=== PATIENT | female | born 1995 | race Caucasian/White ===

== ENCOUNTER → 2018-12-11 14:33 | Outpatient (CLI) | payer OTHER, SELFPAY ==
[2018-12-11 15:42] LABS: Absolute Lymphocyte Count 1.56 X10^3/uL (0.83-4.51); Absolute Neutrophil Count 6.9 X10^3/uL (2.0-7.7); Basophil# 0.03 X10^3/uL; Basophil% 0.3 % (0-1); Color, Urine Yellow (Yellow); Eosinophil# 0.06 X10^3/uL; Eosinophils% 0.7 % (0-5); Glucose, Dipstick Normal (Normal); Hematocrit 35.4 % (37-47); Hemoglobin 12.4 g/dL (12.0-15.0); Ketone-Dipstick Negative (Negative); Leukocyte Esterase-Dipstick 100 /ul (Negative); Lymphocyte # 1.56 X10^3/ul (4.0); Mean Corpuscular Hgb 30.6 pg (27.0-32.0); Mean Corpuscular Volume 87.4 fL (81-99); Mean Platelet Vol. 9.5 fl (6.2-12.0); Monocyte# 0.63 X10^3/uL; Monocyte% 6.9 % (0-10); NRBC Flagged by Analyzer 0 % (0-5); Neutrophil # 6.87 X10^3/uL (2.7-7.7); Neutrophil % 74.8 % (47-70); Nitrite-Dipstick Negative (Negative); Occult Blood-Urine Negative /ul (Negative); Platelet Count 255 K/mm3 (150-450); Protein-Dipstick Negative (Negative); RBC Distribution Width CV 13.2 % (11.6-14.6); Red Blood Count 4.05 M/mm3 (4.2-5.4); Urine Bilirubin Dipstick Negative (Negative); Urine Clarity Sl. Cloudy (Clear); Urine Urobilinogen Normal (Normal); White Blood Count 9.2 K/mm3 (4.4-11.0)
[2018-12-11 17:19] LABS: Chlamydia Trachomatis by PCR Negative (Negative); Neisserai gonorrhoeae by PCR Negative (Negative); Probe Check PASS; Sample Adequacy Control PASS; Specimen Processing Control PASS
[2018-12-12 01:39] LABS: Prenatal RPR NONREACTIVE (NONREACTIVE)
[2018-12-12 10:00] LABS: HIV - WCH Non-Reactive (Nonreactive); Hepatitis B Surface Antigen Non-Reactive (Nonreactive); Hepatitis C Antibody Non-Reactive (Nonreactive)
== END ==
PROVIDERS: Visit Provider Obstetrics & Gynecology
DX: Z34.82 Encounter for supervision of other normal pregnancy, second trimester (principal); Z12.4 Encounter for screening for malignant neoplasm of cervix; Z11.3 Encounter for screening for infections with a predominantly sexual mode of transmission
CPT/HCPCS: 36415; 81002; 84443; 85025; 86703; 86762; 86803; 87340; 87491; 87591; 88175; G0145

== ENCOUNTER → 2019-02-09 13:53 | Outpatient (CLI) | payer OTHER, SELFPAY ==
[2019-02-09 15:46] LABS: Hemoglobin 12.2 g/dL (12.0-15.0); Mean Corp Hgb Conc 35.9 g/dL (32-36); Mean Corpuscular Hgb 32.3 pg (27.0-32.0); Mean Corpuscular Volume 89.9 fL (81-99); Mean Platelet Vol. 9.7 fl (6.2-12.0); Platelet Count 246 K/mm3 (150-450); RBC Distribution Width CV 12.6 % (11.6-14.6); RBC Distribution Width SD 41.2 fl (35.1-43.9); Red Blood Count 3.78 M/mm3 (4.2-5.4); White Blood Count 10.9 K/mm3 (4.4-11.0)
== END ==
PROVIDERS: Visit Provider Obstetrics & Gynecology
DX: Z34.82 Encounter for supervision of other normal pregnancy, second trimester (principal)
CPT/HCPCS: 36415; 83036; 85027

== ENCOUNTER → 2019-03-19 13:09 | Outpatient (CLI) | payer OTHER, SELFPAY ==
[2019-03-19 14:07] LABS: Hemoglobin 12.8 g/dL (12.0-15.0); Mean Corp Hgb Conc 35.6 g/dL (32-36); Mean Corpuscular Hgb 31.6 pg (27.0-32.0); Mean Corpuscular Volume 88.9 fL (81-99); Mean Platelet Vol. 9.7 fl (6.2-12.0); Platelet Count 232 K/mm3 (150-450); RBC Distribution Width CV 12.7 % (11.6-14.6); RBC Distribution Width SD 41.1 fl (35.1-43.9); Red Blood Count 4.05 M/mm3 (4.2-5.4); White Blood Count 10.2 K/mm3 (4.4-11.0)
[2019-03-19 14:10] LABS: Glucose Challenge Gest 1H 50g 131 mg/dL (70-140)
== END ==
PROVIDERS: Visit Provider Obstetrics & Gynecology
DX: Z34.83 Encounter for supervision of other normal pregnancy, third trimester (principal)
CPT/HCPCS: 36415; 82950; 85027

== ENCOUNTER → 2019-04-22 | Outpatient (CLI) | payer OTHER, SELFPAY | END | disposition home or self-care (01) | LOC: LABSPEC 12:57 | PROVIDERS: Visit Provider Advanced Practice Midwife | DX: Z36.85 Encounter for antenatal screening for Streptococcus B (principal) | CPT/HCPCS: 87081 ==

== ENCOUNTER 2019-05-19 06:51 | Inpatient (IN) | payer SELFPAY, OTHER ==
[2019-05-19] VITALS (24 sets, daily range): BP systolic 109–140; BP diastolic 65–93; PULSE 68–108; RESP 18; TEMP 36.9–37.3; O2SAT 96–99; BMI 28.3
[2019-05-19] MEDS: Lactated Ringers 1,000 ML 50 ML IV (07:35)
[2019-05-19 08:00] LABS: Absolute Neutrophil Count 5.3 X10^3/uL (2.0-7.7); Basophil# 0.02 X10^3/uL; Basophil% 0.3 % (0-1); Eosinophil# 0.04 X10^3/uL; Eosinophils% 0.5 % (0-5); Hematocrit 37.5 % (37-47); Hemoglobin 13.4 g/dL (12.0-15.0); Mean Corp Hgb Conc 35.7 g/dL (32-36); Mean Corpuscular Hgb 31.8 pg (27.0-32.0); Mean Corpuscular Volume 88.9 fL (81-99); Monocyte# 0.54 X10^3/uL; Monocyte% 7.3 % (0-10); NRBC Flagged by Analyzer 0 % (0-5); Neutrophil # 5.34 X10^3/uL (2.7-7.7); Neutrophil % 72.5 % (47-70); Platelet Count 205 K/mm3 (150-450); RBC Distribution Width CV 12.7 % (11.6-14.6); RBC Distribution Width SD 40.5 fl (35.1-43.9); Red Blood Count 4.22 M/mm3 (4.2-5.4); White Blood Count 7.4 K/mm3 (4.4-11.0)
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
--- NOTE | 2019-05-19 08:47 | PCM.HP.OB ---
- Problem List (1) 41 weeks gestation of Status: Acute (2) Encounter for induction of labor Status: Acute History Date of Admission: 05/19/19 Final RUCHI: 05/11/19 Final RUCHI Source: US <20 weeks Gestational age: 41 Weeks and 1 Days History of this : This is a 23 year-old, G [1], P [0], at 41 weeks gestational age. Allergies succinylcholine Allergy (Verified 05/19/19 07:26) Other Home Medications: Home Medications Calcium Carbonate [Calcium] BID 05/19/19 Vits [Prenatabs FA] 1 tab PO DAILY 05/19/19 Smoking Status: Never smoker Alcohol: None Number of Fetus(es): 1 NST - FHR Rate Baby A Baseline: 140 Variability:: Moderate Accelerations:: 15 x 15 Decelerations:: None NST Reactive:: Yes FHR Category:: Category I Uterine Activity:: quiet History Past Pregnancies: , First Labs: Mom's Problem List Problem Status Onset Code 41 weeks gestation of Acute Z3A.41 Encounter for induction of labor Acute Z34.90 Mom's Labs & Results 05/19/19 05/19/19 07:35 07:35 WBC 7.4 RBC 4.22 Hgb 13.4 Hct 37.5 MCV 88.9 MCH 31.8 MCHC 35.7 RDW Std Deviation 40.5 RDW Coeff of Justina 12.7 Plt Count 205 MPV 11.0 Immature Gran % (Auto) 0.400 Neut % (Auto) 72.5 H Lymph % (Auto) 19.0 Hayes % (Auto) 7.3 Eos % (Auto) 0.5 Baso % (Auto) 0.3 Absolute Neuts (auto) 5.3 Absolute Lymphs (auto) 1.40 Nucleated RBC % 0 Blood Type Pending Antibody Screen Pending Course Did the patient receive Yes care? Labs Blood Type: A RH: POSITIVE RPR/VDRL/Syphilis Nonreactive Rubella status Immune HbSAg Negative Date Done: 12/11/18 Chlamydia Negative Gonorrhea Negative HIV/AIDS Non-Reactive Group B Strep: Negative Current Obstetrical History Gestational Diabetes No Incompetent Cervix No Infertility No IUGR No Macrosomia No Hypertension/Pre-eclampsia No Placenta Previa/Abruption No PTL/PROM No Uterine anomaly No Oligohydramnios No Polyhydramnios No Multiple gestation No Past Medical History Asthma No Diabetes No Hypertension No Heart disease No Mitral valve prolapse No Neurologic/Seizure disorder/ No Migraines Kidney disease No Liver disease No Varicosities No Clotting disorders/Hx of DVT No Thyroid Dysfunction No Other medical diseases No Psychiatric disorders No Major trauma No Abnormal PAP smear No Sleep apnea No Mammogram in the last 2 years No Social History Marital Status: Alleged father Jacob Donis Hx Smoking No Smoking Status Never smoker Expected Delivery Method: Spontaneous Vaginal Number of Visits: 9 Review of Systems Constitutional: Denies: Chills, Fever, Weight Change HEENT: Denies: Head Aches, Sinus Congestion, Sinus Drainage Cardiovascular: Denies: Chest Pain, Palpitations Respiratory: Denies: Cough, Shortness of breath at rest, Sputum production Gastrointestinal: Denies: Abdominal Pain, Nausea, Vomiting Genitourinary: Denies: Dysuria Musculoskeletal: Denies: Joint Pain, Joint Tenderness Skin: Denies: Rash, Wounds Neurological: Denies: Numbness, Tingling, Focal weakness Psychiatric: Denies: Anxiety, Depression, Homicidal Ideations, Suicidal Ideations Hematologic/ Lymphatic: Denies: Easy Bruising, Easy Bleeding Physical Exam General: Alert, Oriented x3, No apparent distress HEENT: Atraumatic, Normocephalic. Negative for: Thyromegaly, Lymphadenopathy Cardiovascular: Regular rate, Regular Rhythm Lungs: Clear to auscultation Abdomen: Bowel Sounds Present, Gravid Neurological: Deep Tendon Reflexes 2+/4 and Symmetrical, Neuro grossly intact LICENSED PHYSICAL THERAPIST ASSISTANT: Normal external genitalia. Negative for: Vulvar lesions Estimated gestational size: Appropriate for gestational size Presentation: Cephalic Cervix Dilation (cm): 3 Station: -2 Effacement (%): 90 Assessment/Plan All Active Problems 41 weeks gestation of (Acute) Encounter for induction of labor (Acute) A: This is a 23 year-old, G [1], P [0], at 41 weeks gestational age. Here for IOL SVE 3.5/90/-2 UC quiet NST FHR baseline 140, + accels, -decels, moderate variability, Category I P: AROM, clear fluid Recheck SVE at 1000 If labor does not begin on its own, will augment with Pitocin per patient wishes for more natural induction
[2019-05-19] MEDS: Oxytocin 30 units/NS 500 ml 30 UNITS/500 ML IV.SOLN 334 UNITS IV (13:09)
[2019-05-19] MEDS: Methylergonovine 0.2 MG/ML Ampul IM (13:12)
[2019-05-19] MEDS: miSOPROStol 200 MCG Tablet 800 MCG RECTAL (13:26)
--- NOTE | 2019-05-19 14:35 | OP.PCM_ITS ---
Problem List (1) 41 weeks gestation of Status: Acute (2) Encounter for induction of labor Status: Acute Vaginal Delivery Maternal Presentation: Medically Indicated Induction Patient was FD/+2 station when CNM called with decel after second push with FHR down to 60 at 1222. At 1225 CNM at bedside and Dr. Crane called to bedside for sustained low HR at 60 with patient in hands and knees, oxygen on and IV fluid bolus running. At 1227 Dr. Crane in the room. At 1229 FHR baseline back to 100 with both providers in room. FHR moderate variability with baseline 120 at 1235. Okay to begin pushing again given by Dr. Crane at 1241 with patient in hands and knees with O2 and bolus still running. Delivery of viable female fetus in OA to JOSE Immediately followed by placenta in Bell mechanism. The infant was held by CNM and attended to by nursery personnel with bulb suction and stimulation. The cord was doubly clamped and cut by CNM after 30 seconds. was taken by nursery personnel to warmer for further evalua tion. Pitocin started per protocol with fundal massage. IM Methergine given due to blood loss. Fundus firmed well. Bleeding still visualized from 2nd degree periurethral laceration with clitoral extension. 800mcg Cytotec given rectally. Packing applied and Dr. Crane called back for repair. 2nd degree perineal laceration with vaginal extension repaired by CNM with a 3.0 double rapide after injection of 1% lidocaine locally. Packing replaced several times. Dr. Jana Cruz entered room to place a hamilton catheter and repaired periurethral laceration with a 2.0 vicryl after 1% lidocaine injected to the area locally. On inspection placenta was intact with a 3 vessel cord. EBL 750. apgars 8/9. Method of Induction: Amniotomy Medical Reason for Induction: Post term Amniotic Membrane Rupture Type: Artificial Amniotic Fluid Description: Clear Final RUCHI: 05/11/19 Final RUCHI Source: US <20 weeks Gestational age: 41 Weeks and 1 Days Date of Procedure: 05/19/19 Pre-Operative Diagnosis: IOL Post-Operative Diagnosis: S/P Surgery/ Procedure Performed: Spontaneous Vaginal Delivery Type of Anesthesia: Local with 1% lidocaine Presentation: Vertex, JOSE Placental Delivery Description: Spontaneous Placenta Disposition: [facility] Cord Vessel Description: 3 Vessels Cord Entanglement: None Estimated Blood Loss: 750 Infant A gender: Male (1 minute): 8 (5 minute): 9 Episiotomy Description: None Laceration: Periurethral Extnsion/lac - 2nd degree perineal with vaginal floor extension, 2nd degree urethral with clitoral extension, Perineal Extension/lac, 2nd degree Medications given after delivery: IV Pitocin, IM Methergin, - - rectal Cytotec
--- NOTE | 2019-05-19 15:00 | PCM.OPRPT ---
Problem List (1) Obstetrical laceration Status: Acute Report of Operation Date of Procedure: 05/19/19 Pre-Operative Diagnosis: s/p , periurethral/periclitoral laceration Post-Operative Diagnosis: s/p , periurethral/periclitoral laceration Surgery/Procedure Performed:: Periurethral/periclitoral laceration repair Description of Surgical Findings:: periclitoral laceration extending just superior to the urethra supervisor silvering department: Teresa Shirley Type of Anesthesia:: Local Specimen's removed: none Estimated Blood Loss (mL): 20 Description of Procedure: Arrived to room, following . Vulvar examination demonstrated a midline laceration extended from just inferior to the clitorus to just superior to the urethra with bleeding. A perineal repair was present with no other significant lacerations. The anatomy was reapproximated using Allis clamps with improvement of bleeding. The urethra meatus appeared intact intact, a hamilton catheter was placed draining clear urine. A series of horizontal mattress sutures were placed using 3-0 Vicryl Rapide along the laceration line and Allis clamps were removed. There was excellent hemostasis. - Admit VTE Documentation VTE Present on Admission: No VTE Mechan Device Prophylaxis: SCD's VTE Pharm Prophylaxis ordered?: No
--- NOTE | 2019-05-19 16:25 | NURSING ---
Infant wrapped and given to father to hold.
--- NOTE | 2019-05-19 17:18 | NURSING ---
1630 spoke with vashti schneider made aware of temp of 100.8 during recovery and now 100.3; orders received for pt to take tylenol-given
--- NOTE | 2019-05-19 17:19 | NURSING ---
1650 pt oob up to chair pt gait steady
--- NOTE | 2019-05-19 18:03 | NURSING ---
Placed by Dr. Crane at bedside
[2019-05-19] MEDS: Ibuprofen 600 MG Tablet PO (21:56)
[2019-05-20] VITALS (13 sets, daily range): BP systolic 112–130; BP diastolic 71–81; PULSE 70–96; RESP 14–18; TEMP 36.7–37.6; O2SAT 96–100
[2019-05-20] MEDS: 0.9% Saline Lock 10 ML Syringe IV (02:08)
[2019-05-20 05:30] LABS: Hematocrit 36.8 % (37-47); Mean Corp Hgb Conc 35.3 g/dL (32-36); Mean Corpuscular Hgb 31.6 pg (27.0-32.0); Mean Corpuscular Volume 89.3 fL (81-99); Mean Platelet Vol. 10.9 fl (6.2-12.0); Platelet Count 171 K/mm3 (150-450); RBC Distribution Width CV 12.7 % (11.6-14.6); RBC Distribution Width SD 41.2 fl (35.1-43.9); Red Blood Count 4.12 M/mm3 (4.2-5.4); White Blood Count 12.7 K/mm3 (4.4-11.0)
--- NOTE | 2019-05-20 05:33 | NURSING ---
MD concerns for urinary retention due to perineal swelling, 2nd degree perineal and periurethral tears
--- NOTE | 2019-05-20 07:20 | PCM.PN.BLA ---
Progress Note Patient seen, sleeping comfortably. Will return later today.
--- NOTE | 2019-05-20 07:36 | PCM.PN.OB ---
Patient Problems: Active and Suspected Problems 41 weeks gestation of (Acute) Obstetrical laceration (Acute) Subjective: No issues overnight. Denies pain or heavy lochia. is nursing well and Anupama was able to sleep a bit through the night. OOB without difficulties. Objective: AVSS - Physical Exam Vitals/I&O's: Vital Signs Temp Pulse Resp BP 98.3 F 73 14 112/72 05/20/19 03:19 05/20/19 03:19 05/20/19 03:19 05/20/19 03:19 Oxygen Delivery Method Room Air Weight: 76.204 kg Body Mass Index (BMI) 28.3 Intake and Output for Last 24 Hours 05/18/19 05/19/19 05/20/19 23:59 23:59 23:59 Intake Total 987.50 / 987.50 1000 / 1000 Output Total 1999 700 / 700 Balance -1012.50 / -1012.50 300 / 300 General: Alert, Oriented x3, Cooperative, No apparent distress HEENT: Atraumatic, Normocephalic Lungs: Normal air movement Cardiovascular: Regular rate, Regular Rhythm, Normal S1, Normal S2 Abdomen: Soft, Non Tender, Non-Distended, - - fundus firm and nontender, lochia moderate, mild vulvar edema Extremities: No Calf Tenderness, - - trace LE edema Neurological: Neuro grossly intact Psych/Mental Status: Normal Affect, Appropriate, Alert and oriented to time, place, person, mood and affect Laboratory Results 05/19/19 07:35: WBC 7.4, RBC 4.22, Hgb 13.4, Hct 37.5, MCV 88.9, MCH 31.8, MCHC 35.7, RDW Std Deviation 40.5, RDW Coeff of Justina 12.7, Plt Count 205, MPV 11.0, Immature Gran % (Auto) 0.400, Neut % (Auto) 72.5 H, Lymph % (Auto) 19.0, Mckean % (Auto) 7.3, Eos % (Auto) 0.5, Baso % (Auto) 0.3, Absolute Neuts (auto) 5.3, Absolute Lymphs (auto) 1.40, Nucleated RBC % 0 05/19/19 07:35: Blood Type A POSITIVE, Antibody Screen NEGATIVE 05/20/19 05:15: WBC 12.7 H, RBC 4.12 L, Hgb 13.0, Hct 36.8 L, MCV 89.3, MCH 31.6, MCHC 35.3, RDW Std Deviation 41.2, RDW Coeff of Justina 12.7, Plt Count 171, MPV 10.9 Current Medications Acetaminophen (Tylenol) 1,000 mg PO Q8H PRN PRN PRN Reason: Pain Score 1-3/10 Bisacodyl (Dulcolax) 10 mg RECTAL UD PRN PRN Reason: If no BM Dibucaine (Dibucaine) 1 applic TOPICAL TID PRN PRN; Protocol PRN Reason: Discomfort Hydrocortisone (Hytone) 1 applic TOPICAL TID PRN PRN; Protocol PRN Reason: Discomfort Ibuprofen (Motrin) 600 mg PO Q6H PRN PRN PRN Reason: Pain Score 1-3/10 Last Admin: 05/19/19 21:56 Dose: 600 mg Documented by: Methylergonovine Maleate (Methergine) 0.2 mg IM X1 PRN PRN Reason: Excess bleeding/uterine atony Last Admin: 05/19/19 13:12 Dose: 0.2 mg Documented by: Ondansetron HCl (Zofran) 4 mg IV Q4H PRN PRN PRN Reason: Nausea Oxycodone HCl (Oxyir) 5 - 10 mg PO Q4H PRN PRN PRN Reason: Pain Score 4-10/10 Senna/Docusate Sodium (Senokot-S, Cintia-Colace) 1 - 2 tablet PO DAILY PRN PRN PRN Reason: Constipation Simethicone (Mylicon) 80 mg PO PCHS PRN PRN Reason: Indigestion/Stomach pain Sodium Chloride () 5 - 15 ml IV UD PRN PRN Reason: SALINE FLUSH Last Admin: 05/20/19 02:08 Dose: 10 ml Documented by: Medical Necessity - Tobacco Use Smoking Status: Never smoker Assessment/Plan All Active Problems 41 weeks gestation of (Acute) Obstetrical laceration (Acute) Encounter for induction of labor (Resolved) 23yo PPD#1 s/p doing well. -Will d/c hamilton catheter - -A positive -Routine care
--- NOTE | 2019-05-20 09:42 | NURSING ---
Dr. Crane called this RN this am to state that alfonso may be d/c'd at this morning.
[2019-05-20] MEDS: Ibuprofen 600 MG Tablet PO (11:44)
[2019-05-20] MEDS: Senna/Docusate Sodium 1 Tablet PO (11:45)
[2019-05-20] MEDS: Acetaminophen 500 MG Tablet 1000 MG PO ×2 (15:42→22:58)
[2019-05-21 04:14] VITALS: BP 108/56; PULSE 85; RESP 16; TEMP 36.4
[2019-05-21 04:15] VITALS: BP 108/56; PULSE 85
[2019-05-21] MEDS: Ibuprofen 600 MG Tablet PO ×2 (04:22→12:40)
[2019-05-21 08:52] VITALS: BP 115/65; PULSE 79
[2019-05-21 08:55] VITALS: BP 115/65; PULSE 79; RESP 15; TEMP 36.7
--- NOTE | 2019-05-21 09:02 | DCINST_ITS ---
Discharge Diet: No Restrictions Discharge Activity: Return to Normal Activity, May not drive while taking narcotic pain medications., May Shower May resume sexual activity in: 4-6 weeks Additional Activity Instructions:: Nothing in the vagina for 4-6 weeks. You may return to work/school in 6 weeks. Call your doctor if your incision/area has: Continuous Slow Oozing, Sudden Increased Bleeding, Increased Pain/ Swelling, Increased Redness, Foul Smelling Discharge Additional Instructions: If you experience any of the following, contact your healthcare provider. * Bleeding that soaks a pad every hour for 2 hours * Fever 100.4 or higher * Unrelieved incision or abdominal pain * Swelling, redness, discharge or bleeding from your incision or episiotomy site * Your incision begins to separate * Problems urinating (including inability to urinate or burning while urinating). * Visual changes * Severe headache * Flu-like symptoms * Pain or redness in one of both of your breasts * Pain, warmth, tenderness or swelling in your legs, especially the calf area * Frequent nausea and vomiting * Symptoms of depression or anxiety If you experience any of the following, call 911 or go to the nearest Emergency Room. * Chest pain * Problems breathing * Seizure activity * Partial or complete paralysis of a body part, slurred speech, weakness or drooping of the face, or a sudden inability to walk or hold your balance Allergies/Adverse Reactions: Allergies succinylcholine Allergy (Verified 05/19/19 07:26) Other Medications to take at Discharge Calcium Carbonate [Calcium] BID 05/19/19 Vits [Prenatabs FA] 1 tab PO DAILY 05/19/19 Please Follow Up With: Teresa Shirley CNM When: Call to make an appointment with your doctor in 6 weeks. If signs of Post Depression to call in 2 weeks. Primary Care Physician: Care Physician,No Primary [Primary Care Provider] - Test Results: Test results from this visit will be discussed in further detail at your follow- up appointment, if applicable.
--- NOTE | 2019-05-21 09:04 | PCM.PN.BLA ---
Progress Note S: Feeling well with little pain. Vaginal pain 2/10 controlled with Tylenol and Motrin. is going well and ready to go home. O: AVSS Fundus u/1, firm, midline Lochia rubra moderate, denies clots A: Post vaginal delivery day #2 female Normal course P: To discharge home today Call if any problems with If signs of Post depression to call immediately and schedule 2 week appt Normal appt in 6 weeks STROKE Vital Signs/Narrative: Vital Signs Temp Pulse Resp BP 05/21/19 08:55 98.0 F 79 15 115/65
[2019-05-21] MEDS: Acetaminophen 500 MG Tablet 1000 MG PO (09:14)
[2019-05-21 12:24] VITALS: BP 120/78; PULSE 83
[2019-05-21 12:33] VITALS: BP 120/78; PULSE 83; RESP 15; TEMP 36.6
== END 2019-05-21 14:05 | disposition home or self-care (01) | DRG 807 ==
PROVIDERS: Admitting Provider Obstetrics & Gynecology; Referring Provider Obstetrics & Gynecology; Visit Provider Obstetrics & Gynecology
DX: O76 Abnormality in fetal heart rate and rhythm complicating labor and delivery (principal); Z37.0 Single live birth; O48.0 Post-term pregnancy; O70.1 Second degree perineal laceration during delivery; O71.82 Other specified trauma to perineum and vulva; Z3A.41 41 weeks gestation of pregnancy
CPT/HCPCS: 59025; 59050; 85025; 85027; 86850; 86900; 86901; 99218; J7120; A4216; G0378

== ENCOUNTER → 2021-03-01 11:52 | Outpatient (CLI) | payer OTHER, SELFPAY ==
[2021-03-01 12:21] LABS: Color, Urine Yellow (Yellow); Glucose, Dipstick Normal (Normal); Ketone-Dipstick Negative (Negative); Leukocyte Esterase-Dipstick 25 /ul (Negative); Nitrite-Dipstick Negative (Negative); Occult Blood-Urine Negative /ul (Negative); Protein-Dipstick Negative (Negative); Specific Gravity, Urine 1.015 (1.002-1.030); Urine Bilirubin Dipstick Negative (Negative); Urine Clarity Cloudy (Clear); Urine Urobilinogen Normal (Normal)
[2021-03-01 12:27] LABS: Absolute Lymphocyte Count 1.36 X10^3/uL (0.83-4.51); Absolute Neutrophil Count 5.7 X10^3/uL (2.0-7.7); Basophil# 0.03 X10^3/uL; Basophil% 0.4 % (0-1); Eosinophil# 0.06 X10^3/uL; Eosinophils% 0.8 % (0-5); Hematocrit 34.4 % (37-47); Hemoglobin 12.6 g/dL (12.0-15.0); Lymphocyte # 1.36 X10^3/ul (0.83-4.51); Lymphocyte % 18.2 % (19-41); Mean Corp Hgb Conc 36.6 g/dL (32-36); Mean Corpuscular Hgb 31.5 pg (27.0-32.0); Mean Platelet Vol. 9.2 fl (6.2-12.0); Monocyte# 0.35 X10^3/uL; Monocyte% 4.7 % (0-10); NRBC Flagged by Analyzer 0 % (0-5); Neutrophil # 5.65 X10^3/uL (2.7-7.7); Neutrophil % 75.8 % (47-70); Platelet Count 281 K/mm3 (150-450); RBC Distribution Width CV 12.8 % (11.6-14.6); RBC Distribution Width SD 39.8 fl (35.1-43.9); White Blood Count 7.5 K/mm3 (4.4-11.0)
[2021-03-01 12:47] LABS: Thyroid Stim Hormone (TSH) 0.93 uIU/mL (0.358-3.74)
[2021-03-01 13:16] LABS: HIV - WCH Non-Reactive (Nonreactive); Hepatitis B Surface Antigen Non-Reactive (Nonreactive); Hepatitis C Antibody Non-Reactive (Nonreactive); Rubella IgG Reactive (Nonreactive); Syphilis Antibodies Non-reactive
[2021-03-02 22:07] LABS: Chlamydia By Nucleic Acid AMP Negative (Negative)
[2021-03-03 08:08] LABS: Gonococcus By Nucleic Acid AMP Negative (Negative)
[2021-03-06 14:20] LABS: HPV Reflexed? NOT INDICATED
== END ==
PROVIDERS: Visit Provider Obstetrics & Gynecology
DX: Z34.82 Encounter for supervision of other normal pregnancy, second trimester (principal); Z12.4 Encounter for screening for malignant neoplasm of cervix; Z11.3 Encounter for screening for infections with a predominantly sexual mode of transmission
CPT/HCPCS: 36415; 81002; 84443; 85025; 86703; 86762; 86780; 86803; 87086; 87088; 87340; 87491; 87591; 88175; G0145

== ENCOUNTER 2021-05-22 08:38 | Outpatient (CLI) | payer OTHER, SELFPAY ==
[2021-05-22 10:04] LABS: Glucose Challenge Gest 1H 50g 92 mg/dL (70-140)
[2021-05-22 10:10] LABS: Hematocrit 35.5 % (37-47); Hemoglobin 12.8 g/dL (12.0-15.0); Mean Corp Hgb Conc 36.1 g/dL (32-36); Mean Corpuscular Hgb 32.2 pg (27.0-32.0); Mean Corpuscular Volume 89.2 fL (81-99); Mean Platelet Vol. 9.4 fl (6.2-12.0); Platelet Count 247 K/mm3 (150-450); RBC Distribution Width CV 13.2 % (11.6-14.6); RBC Distribution Width SD 43.2 fl (35.1-43.9); Red Blood Count 3.98 M/mm3 (4.2-5.4); White Blood Count 7.4 K/mm3 (4.4-11.0)
== END 2021-05-22 23:59 | disposition home or self-care (01) ==
PROVIDERS: Visit Provider Obstetrics & Gynecology
DX: Z34.83 Encounter for supervision of other normal pregnancy, third trimester (principal)
CPT/HCPCS: 36415; 82950; 85027

== ENCOUNTER → 2021-07-20 | Outpatient (CLI) | payer OTHER, SELFPAY | END | disposition home or self-care (01) | LOC: LABSPEC 10:45 | PROVIDERS: Visit Provider Obstetrics & Gynecology | DX: Z36.85 Encounter for antenatal screening for Streptococcus B (principal) | CPT/HCPCS: 87081 ==

== ENCOUNTER 2021-08-12 04:55 | Inpatient (IN) | payer SELFPAY, OTHER ==
[2021-08-12] VITALS (46 sets, daily range): BP systolic 112–131; BP diastolic 57–84; PULSE 64–87; RESP 16; TEMP 36.3–37.1; O2SAT 93–100; BMI 27.6
[2021-08-12] MEDS: Lactated Ringers 1,000 ML 50 ML IV (05:10)
[2021-08-12 05:26] LABS: Absolute Lymphocyte Count 1.52 X10^3/uL (0.83-4.51); Absolute Neutrophil Count 8.3 X10^3/uL (2.0-7.7); Basophil# 0.04 X10^3/uL; Basophil% 0.4 % (0-1); Eosinophil# 0.08 X10^3/uL; Eosinophils% 0.8 % (0-5); Hematocrit 38.8 % (37-47); Hemoglobin 13.7 g/dL (12.0-15.0); Lymphocyte # 1.52 X10^3/ul (0.83-4.51); Lymphocyte % 14.3 % (19-41); Mean Corp Hgb Conc 35.3 g/dL (32-36); Mean Corpuscular Hgb 31.8 pg (27.0-32.0); Mean Platelet Vol. 10.5 fl (6.2-12.0); Monocyte# 0.67 X10^3/uL; Monocyte% 6.3 % (0-10); NRBC Flagged by Analyzer 0 % (0-5); Neutrophil # 8.26 X10^3/uL (2.7-7.7); Neutrophil % 77.7 % (47-70); Platelet Count 222 K/mm3 (150-450); RBC Distribution Width CV 12.4 % (11.6-14.6); RBC Distribution Width SD 41.1 fl (35.1-43.9); Red Blood Count 4.31 M/mm3 (4.2-5.4); White Blood Count 10.6 K/mm3 (4.4-11.0)
--- NOTE | 2021-08-12 08:40 | HP.PCM.OB_ITS ---
History and Physical Date of Admission: 08/12/21 Chief complaint: Contractions History present illness: 26-year-old at 40 weeks and 1 day with RUCHI 08/11/2021 by 19-week ultrasound arrives with contractions. Denies headache, visual changes, chest pain, shortness of breath, nausea vomiting or right upper quadrant pain. Patient stat es good movement. Obstetric history: G1: 41-week female 05/19/2019 G2: SAB G3: Current Past medical history: None Past surgical history: Eye, hiatal hernia, tonsils and adenoids Allergies: No known drug allergies Family history: Denies history DVT or PE Social history: Denies smoking, place, drug use Review of systems: Besides above pertinent positives a full review of systems was performed and found to be negative Physical exam: Vitals pulse 64 SPO2 97% on room air General: Normal-appearing no acute distress none HEENT: Normocephalic atraumatic no cervical adenopathy Cardiac/respiratory: No use accessory muscles nonlabored breathing Abdomen: Soft, nontender, gravid Pelvic exam: Cervix 7/70/-2, AROM clear fluid Extremities: No peripheral edema normal peripheral pulses Psych: Normal affect normal demeanor nonpressured speech Labs: White blood cell count 10.6 hemoglobin 13.7 hematocrit 38.8% platelets 222 Assessment plan: 26-year-old at 40 weeks and 1 day in labor Admit labor and delivery CEFM GBS negative AROM clear fluid Routine orders
[2021-08-12] MEDS: Oxytocin 30 units/NS 500 ml 30 UNITS/500 ML IV.SOLN 334 UNITS IV (09:04)
--- NOTE | 2021-08-12 09:20 | EX.PCM.OBRPT ---
Vaginal Delivery Findings Description of Procedure: Normal spontaneous vaginal delivery of a viable female infant, vertex JOSE. Head and shoulders delivered with ease cord cut and clamped x2. Baby Handed to patient. Placenta delivered via cord traction and fundal massage. Periurethral and first degree midline perineal laceration noted and repaired in typical fashion. EBL 300 cc Apgars 9/9
[2021-08-13] VITALS: BP 110/63; PULSE 75; RESP 16; TEMP 36.8
[2021-08-13 00:01] VITALS: BP 110/63; PULSE 75
[2021-08-13 04:28] VITALS: BP 110/68; PULSE 81; RESP 16; TEMP 36.2
[2021-08-13 04:30] VITALS: BP 110/68; PULSE 81
--- NOTE | 2021-08-13 08:32 | PCM.DC ---
Discharge Instructions Diet Discharge Diet: No restrictions Activity Discharge Activity: Return to Normal Activity, May Drive, May Shower and - (No tub baths for 2 weeks) May resume sexual activity in: 4-6 weeks Lifting Restrictions: No lifting over 25 pounds for 2 to 3 weeks Dressing / Incision Call your doctor if your incision/area has: Continuous Slow Oozing and Foul Smelling Discharge Call your doctor if you observe: Fever of 101 or Higher, Shortness of breath and Chest pain Follow Up Care Please Follow Up With: Jacob Donis MD When: 2-week telehealth, 4 to 6 weeks Test Results: Test results from this visit will be discussed in further detail at your follow-up appointment, if applicable. Discharge Plan Admission Admit Date/Time: 08/12/21 04:55 Attending Provider: Jacob Donis Discharge Orders/Prescriptions Prescriptions: No Action calcium carbonate 500 MG tablet,chewable BID RF: 0 [id number] 1 TABLET tablet 1 tab PO DAILY RF: 0 Disposition Discharge Orders: Discharge Patient (Routine); Ordered 08/13/21 Ordered By: Dr. Jacob Donis
--- NOTE | 2021-08-13 08:33 | PN.OBGYN_ITS ---
Subjective Subjective No overnight complaints Objective Data Objective Data Vital Signs: Vital Signs Temp Pulse Resp BP Pulse Ox 97.2 F L 81 16 110/68 97 08/13/21 04:28 08/13/21 04:30 08/13/21 04:28 08/13/21 04:30 08/12/21 15:45 Oxygen Delivery Method Room Air Weight: 161 lb Body Mass Index (BMI) 27.6 Intake & Output: Intake and Output for Last 24 Hours 08/11/21 08/12/21 08/13/21 23:59 23:59 23:59 Intake Total 688.33 / 688.33 Output Total 1500 / 1500 Balance -811.67 / -811.67 Lab / Micro Data Result Diagrams: 08/12/21 05:10 Micro: Microbiology 08/12/21 05:10 Nasal Secretion SARS-CoV-2 Antigen (Rapid) - Final Physical Exam Const alert, oriented x3, no apparent distress, average body habitus, healthy appearing and well nourished HEENT normocephalic and moist oral mucous membranes Head and Scalp: atraumatic Face and Sinus: normal facial exam Neck full ROM Resp normal respiratory effort, no retractions and no use of accessory muscles GI GI Narrative: Soft, nontender, uterus firm and below umbilicus Extremity normal to inspection, full ROM and no clubbing, cyanosis or edema Psych mental status grossly normal, affect normal, speech normal and activity/motor behavior normal Assessment & Plan (1) 41 weeks gestation of : PLAN: day 1. Breast-feeding. Pain well controlled. Okay to discharge home today if okay with learning specialist
[2021-08-13 09:13] VITALS: BP 112/74; PULSE 78
[2021-08-13 09:15] VITALS: BP 112/74; PULSE 74; RESP 16; TEMP 36.6; O2SAT 98
== END 2021-08-13 13:05 | disposition home or self-care (01) | DRG 807 ==
LOC: WPOUT 04:58 → WP 04:58
PROVIDERS: Admitting Provider Obstetrics & Gynecology; Visit Provider Obstetrics & Gynecology
DX: O70.0 First degree perineal laceration during delivery (principal); Z37.0 Single live birth; Z3A.40 40 weeks gestation of pregnancy
CPT/HCPCS: 59025; 59050; 85025; 86850; 86900; 86901; 87426; 99218; J7120; G0378